=== PATIENT | male | born 1970 | race Caucasian/White ===

== ENCOUNTER 2020-04-21 08:56 | Emergency (ER) | payer SELFPAY ==
[2020-04-21] MEDS ORDERED: NORMAL SALINE 1000 ML 1,000 ML IV ONE ×2 (10:08→10:57)
--- NOTE | 2020-04-21 10:23 | ER Document Report ---
ED General - General Chief Complaint: Weakness Stated Complaint: WEAKNESS Time Seen by Provider: 04/21/20 09:38 Notes: HPI: Patient is a 49-year-old male who presents today stating that he has felt fatigued over the last 2 days. 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 He states some cramping to bilateral legs Arms. He denies any chest pain, headache, cough, shortness of breath, fevers or vomiting. He denies any medical history. He denies any real aggravating relieving factors to the fatigue. ROS: See HPI All other review of systems reviewed and otherwise negative Reviewed vital signs and nursing note as charted by RN. PHYSICAL EXAM: CONSTITUTIONAL: Alert and oriented and responds appropriately to questions. Well-appearing; well-nourished HEAD: Normocephalic; atraumatic EYES: PERRL; sclerae non-icteric, no nystagmus ENT: Normal nose; no rhinorrhea; moist mucous membranes; pharynx without lesions noted NECK: Supple without meningismus; non-tender; no cervical lymphadenopathy, no masses CARD: Regular rate and rhythm; no murmurs; symmetric distal pulses RESP: Normal chest excursion without splinting or tachypnea; breath sounds clear and equal bilaterally ABD/GI: Normal bowel sounds; non-distended; soft, non-tender BACK: The back appears normal and is non-tender to palpation EXT: Normal ROM in all joints; non-tender to palpation; no edema SKIN: No acute lesions noted NEURO: CN 2-12 intact; 5/5 bilateral upper and lower extremity strength with sensation intact to light touch PSYCH: The patient's mood and manner are appropriate. Grooming and personal hygiene are appropriate. TRAVEL OUTSIDE OF THE [place] IN LAST 30 DAYS: No - Related Data Allergies/Adverse Reactions: No Known Allergies Allergy (Unverified 04/21/20 10:09) Past Medical History - Social History Smoking Status: Current Every Day Smoker Chew tobacco use (# tins/day): No Frequency of alcohol use: Rare Drug Abuse: Bath salts Family History: None Patient has homicidal ideation: No Physical Exam - Vital signs Vitals: Temp Pulse Resp BP Pulse Ox 98.4 F 84 16 152/91 H 100 04/21/20 09:00 04/21/20 09:00 04/21/20 09:00 04/21/20 09:00 04/21/20 09:00 Course - Re-evaluation Re-evalutation: Given the above history and physical examination with vital signs as recorded, afebrile, we will provide fluids and obtain basic labs including a total CK. I do believe a cardiac etiology to be unlikely. EKG shows a heart of 74, normal sinus rhythm, normal axis, no ST elevation or depression. Inverted T waves in aVL. 04/21/20 10:58 BUN and creatinine as recorded. No old labs to compare. Patient still denies any pain. I have provided 2 L of fluid. CK only slightly elevated. Given the above history and physical, I believe it is reasonable to discharge the patient home with strict return precautions with fluid rehydration instructions and return for repeat chemistry. - Vital Signs Vital signs: Temp Pulse Resp BP Pulse Ox 98.4 F 84 16 152/91 H 100 04/21/20 09:00 04/21/20 09:00 04/21/20 09:00 04/21/20 09:00 04/21/20 09:00 - Laboratory Result Diagrams: 04/21/20 10:05 04/21/20 10:05 Laboratory results interpreted by me: 04/21/20 10:05 BUN 35 H Creatinine 2.06 H Est GFR ( Amer) 42 L Est GFR (MDRD) Non-Af 35 L Creatine Kinase 240 H Discharge - Discharge Clinical Impression: Dehydration after exertion Acute renal failure Qualifiers: Acute renal failure type: unspecified Qualified Code(s): N17.9 - Acute kidney failure, unspecified Condition: Good Disposition: HOME, SELF-CARE Additional Instructions: Please make sure that she refrain from any excessive walking the heat for the next 2 days. Please have your kidney function rechecked this today your BUN was 35 and your creatinine was 2.0. Please make sure that you stay well-hydrated with electrolyte-containing fluid and attempt to refrain as much as possible from overexertion. Please follow-up with your primary care physician for reassessment. Forms: Return to Work
[2020-04-21 10:36] LABS: ABSOLUTE EOSINOPHILS # (AUTO) 0.1 10^3/uL (0.0-0.6); ABSOLUTE LYMPHOCYTES (AUTO) 2.1 10^3/uL (0.5-4.7); ABSOLUTE MONOCYTES (AUTO) 0.7 10^3/uL (0.1-1.4); ABSOLUTE NEUT (AUTO) 6.3 10^3/uL (1.7-8.2); BASOPHILS % (AUTO) 0.4 % (0-2); EOSINOPHILS % (AUTO) 1.2 % (0-6); HEMOGLOBIN 16.1 g/dL (13.5-17.0); LYMPHOCYTES % (AUTO) 22.2 % (13-45); MEAN CORPUSCULAR HEMOGLOBIN 31.6 pg (27.0-33.4); MEAN CORPUSCULAR VOLUME 90 fl (80-97); PLATELET COUNT 178 10^3/uL (150-450); RED BLOOD COUNT 5.09 10^6/uL (4.35-5.55); RED CELL DISTRIBUTION WIDTH 13.2 % (11.5-14.0); SEGMENTED NEUTROPHILS % (AUTO) 68.2 % (42-78); TOTAL CELLS COUNTED % (AUTO) 100 %; WHITE BLOOD COUNT 9.3 10^3/uL (4.0-10.5)
[2020-04-21 10:53] LABS: ANION GAP 10 (5-19); BLOOD UREA NITROGEN 35 mg/dL (7-20); CALCIUM 10.2 mg/dL (8.4-10.2); CARBON DIOXIDE 24 mmol/L (22-30); CHLORIDE 104 mmol/L (98-107); CREATINE KINASE 240 U/L (55-170); GLUCOSE 96 mg/dL (75-110); POTASSIUM 3.9 mmol/L (3.6-5.0)
[2020-04-21 12:09] VITALS: BP 161/93
--- NOTE | 2020-04-22 09:25 | EKG REPORT ---
SEVERITY:- ABNORMAL ECG - SINUS RHYTHM PROBABLE INFERIOR INFARCT, OLD : Confirmed by: Radha Farooq 22-Apr-2020 09:24:37
== END 2020-04-21 12:35 | disposition home or self-care (01) ==
LOC: ER 08:56
DX: N17.9 Acute kidney failure, unspecified (principal); E86.0 Dehydration; R53.1 Weakness; R53.83 Other fatigue; F17.200 Nicotine dependence, unspecified, uncomplicated
CPT/HCPCS: 93005; 99284; 96360; 96361; 36415; 82550; 83735; 85025; 80048; 84484; 93010; J7030

== ENCOUNTER 2020-04-25 09:18 | Emergency (ER) | payer SELFPAY ==
[2020-04-25 10:20] LABS: ALBUMIN 4.7 g/dL (3.5-5.0); ALKALINE PHOSPHATASE 79 U/L (38-126); ANION GAP 5 (5-19); ASPARTATE AMINO TRANSFERASE 21 U/L (17-59); BILIRUBIN,TOTAL 0.4 mg/dL (0.2-1.3); BLOOD UREA NITROGEN 25 mg/dL (7-20); CALCIUM 10.9 mg/dL (8.4-10.2); CARBON DIOXIDE 26 mmol/L (22-30); CHLORIDE 106 mmol/L (98-107); GLUCOSE 88 mg/dL (75-110); POTASSIUM 4.9 mmol/L (3.6-5.0); TOTAL PROTEIN 7.6 g/dL (6.3-8.2)
[2020-04-25 10:24] LABS: ABSOLUTE BASOPHILS # (AUTO) 0.1 10^3/uL (0.0-0.2); ABSOLUTE EOSINOPHILS # (AUTO) 0.3 10^3/uL (0.0-0.6); ABSOLUTE LYMPHOCYTES (AUTO) 2.7 10^3/uL (0.5-4.7); ABSOLUTE MONOCYTES (AUTO) 0.9 10^3/uL (0.1-1.4); ABSOLUTE NEUT (AUTO) 4.7 10^3/uL (1.7-8.2); BASOPHILS % (AUTO) 0.6 % (0-2); EOSINOPHILS % (AUTO) 3.1 % (0-6); HEMATOCRIT 46.9 % (37.9-51.0); HEMOGLOBIN 16.5 g/dL (13.5-17.0); LYMPHOCYTES % (AUTO) 30.7 % (13-45); MEAN CORPUSCULAR HEMOGLOBIN 31.7 pg (27.0-33.4); MEAN CORPUSCULAR HGB CONC 35.2 g/dL (32.0-36.0); MEAN CORPUSCULAR VOLUME 90 fl (80-97); MONOCYTES % (AUTO) 10.9 % (3-13); PLATELET COUNT 200 10^3/uL (150-450); RED BLOOD COUNT 5.19 10^6/uL (4.35-5.55); RED CELL DISTRIBUTION WIDTH 12.8 % (11.5-14.0); SEGMENTED NEUTROPHILS % (AUTO) 54.7 % (42-78); TOTAL CELLS COUNTED % (AUTO) 100 %; WHITE BLOOD COUNT 8.7 10^3/uL (4.0-10.5)
[2020-04-25 10:29] LABS: APPEARANCE,URINE CLEAR; BILIRUBIN,URINE NEGATIVE (NEGATIVE); COLOR,URINE YELLOW; GLUCOSE, URINE 50 mg/dL (NEGATIVE); KETONES,URINE NEGATIVE (NEGATIVE); LEUKOCYTE ESTERASE,URINE NEGATIVE (NEGATIVE); NITRITE,URINE NEGATIVE (NEGATIVE); PROTEIN,URINE NEGATIVE (NEGATIVE); URINE SPECIFIC GRAVITY 1.018; UROBILINOGEN,URINE NEGATIVE mg/dL (<2.0)
--- NOTE | 2020-04-25 10:45 | ER Document Report ---
ED General - General Chief Complaint: Abdominal Pain Stated Complaint: ABDOMINAL PAIN Notes: Patient is a 49-year-old white male with no reported past medical history who presents to the emergency department with a chief complaint of wanting reevaluation of his kidney function. The patient states he was here on Monday, 4 days ago in relation to heat exhaustion and dehydration. States his kidney function was slightly elevated relating to his measured creatinine. States he was hydrated with IV fluids and encouraged to follow-up with his primary doctor. Patient states he does not have a primary doctor, tried to call around to several outpatient physicians without any luck and was concerned regarding the need for repeat testing to evaluate this kidney function. Patient states on Monday he started having some discomfort in the bilateral abdomen/flank areas with a sensation of swelling. He also adds that he has had a examination as type rash for over a month. States he has had this from time to time over the past several years, has not have it evaluated. Has used emollient creams in the past without any significant improvement. The patient denies any decreased urinary output or intolerance of oral intake. Has been hydrating well with oral fluids at home. Denies any back pain, vomiting or diarrhea. No chills or fevers. No chest pain or shortness of breath. TRAVEL OUTSIDE OF THE [place] IN LAST 30 DAYS: No - Related Data Allergies/Adverse Reactions: No Known Allergies Allergy (Verified 04/25/20 10:19) Past Medical History - Social History Smoking Status: Unknown if Ever Smoked Family History: None Review of Systems - Review of Systems Constitutional: denies: Fever, Weakness EENT: denies: Throat pain Cardiovascular: denies: Chest pain, Syncope, Dizziness Respiratory: denies: Short of breath Gastrointestinal: denies: Abdominal pain, Vomiting Genitourinary: denies: Burning, Dysuria, Frequency, Hematuria, Incontinence, Pain, Urgency, Retention Male Genitourinary: No symptoms reported Musculoskeletal: denies: Muscle pain Skin: Rash Hematologic/Lymphatic: denies: Easy bruising Neurological/Psychological: denies: Weakness, Lost consciousness Physical Exam - Vital signs Vitals: Temp Pulse Resp BP Pulse Ox 98.3 F 83 16 139/93 H 97 04/25/20 09:39 04/25/20 09:39 04/25/20 09:39 04/25/20 09:39 04/25/20 09:39 - General General appearance: Appears well, Alert In distress: None - HEENT Head: Normocephalic, Atraumatic Eyes: Normal Conjunctiva: Normal Mucous membranes: Moist Neck: Supple - Respiratory Respiratory status: No respiratory distress Chest status: Nontender Breath sounds: Normal Chest palpation: Normal - Cardiovascular Rhythm: Regular Heart sounds: Normal auscultation - Abdominal Inspection: Normal Distension: No distension Bowel sounds: Normal Tenderness: Nontender Organomegaly: No organomegaly - Extremities General upper extremity: Normal inspection, Nontender, Normal color, Normal ROM, Normal temperature General lower extremity: Normal inspection, Nontender, Normal color, Normal ROM, Normal temperature, Normal weight bearing. 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 He has a benign abdominal exam. Urine showing some glycosuria otherwise no abnormality. We will try triamcinolone cream for his rash. Will refer to the primary amusement or recreation card checker, Dr. Ahuja. Patient is stable and appropriate for discharge and outpatient follow- up. Counseled him regarding the importance of outpatient follow-up and advised to return here or any ER immediately with any new, persistent or worsening symptoms. He verbalized understood and agreed. - Vital Signs Vital signs: Temp Pulse Resp BP Pulse Ox 98.3 F 83 16 139/93 H 97 04/25/20 09:39 04/25/20 09:39 04/25/20 09:39 04/25/20 09:39 04/25/20 09:39 - Laboratory Result Diagrams: 04/25/20 09:50 04/25/20 09:50 Laboratory results interpreted by me: 04/25/20 04/25/20 09:50 10:05 BUN 25 H Calcium 10.9 H Urine Glucose (UA) 50 H Discharge - Discharge Clinical Impression: Rash and nonspecific skin eruption, Encounter for follow-up examination Condition: Stable Disposition: HOME, SELF-CARE Instructions: Normal Exam and Workup ([facility]) Additional Instructions: Please follow-up with the amusement or recreation card checker primary care provider, Dr. Ahuja. Please return here or any ER immediately with any new, persistent or worsening symptoms. Prescriptions: Triamcinolone Acetonide [Aristocort 0.1% Cream] 1 applic TP BID #1 tub Referrals: CLAYTON AHUJA DO [NO LOCAL MD] - Follow up as needed
[2020-04-25 11:52] VITALS: BP 132/84
== END 2020-04-25 11:55 | disposition home or self-care (01) ==
LOC: ER 09:18
DX: R21 Rash and other nonspecific skin eruption (principal)
CPT/HCPCS: 36415; 80053; 81001; 82550; 83690; 85025; 99284